=== PATIENT | female | born 1955 | race Caucasian/White ===

== ENCOUNTER 2023-11-18 08:16 | Inpatient (IN) | payer OTHER, BC ==
[2023-11-13 11:26] VITALS: BMI 40.3
[~2023-11-18 08:16] MED LIST: ACETAMINOPHEN 325 MG TABLET (FP) PO PRN; ONDANSETRON 4 MG/2 ML VIAL IVPUSH PRN; oxyCODONE HCL 5 MG TABLET PO PRN
[2023-11-18] MEDS ORDERED: TRANEXAMIC ACID 1000 MG/10 ML VIAL ONE ×2 (08:27→11:28)
[2023-11-18] MEDS ORDERED: ceFAZolin SODIUM 1 GM VIAL ONE (08:27)
[2023-11-18] MEDS ORDERED: TRANEXAMIC ACID 1000 MG/10 ML VIAL IVPUSH ONE (08:41)
[2023-11-18] MEDS ORDERED: CEFAZOLIN 2 GM in DEXTROSE 5%-WATER - 100 ML IVPB ONE (08:41)
[2023-11-18] MEDS ORDERED: VANCOMYCIN 1,000 MG VIAL (RESTRICTED TO ID ONLY) ONE (08:48)
[2023-11-18] MEDS ORDERED: BUPIVACAINE LIPOSOME/PF (EXPAREL) 266 MG/20 ML VIAL ONE (09:27)
[2023-11-18] MEDS ORDERED: BUPIVACAINE HCL/PF 0.5% (5MG/ML) 10 ML VIAL ONE (09:27)
[2023-11-18] MEDS ORDERED: MIDAZOLAM HCL 2 MG/2 ML SINGLE DOSE VIAL ONE ×2 (09:27→11:32)
[2023-11-18] MEDS ORDERED: ACETAMINOPHEN INJECTION 100 ML IVPB ONE (09:27)
[2023-11-18] MEDS ORDERED: BUPIVACAINE HCL/PF 0.5% (5 MG/ML) 30 ML VIAL IJ ONE (10:11)
[2023-11-18] MEDS ORDERED: BUPIVICAINE 0.25%/MORPH PF/KETOROLAC - 51ML DISP.SYRINGE IA ONE ×2 (10:35→11:55)
[2023-11-18] MEDS ORDERED: VANCOMYCIN 1,000 MG VIAL (RESTRICTED TO ID ONLY) IVPB ONE (11:44)
[2023-11-18] MEDS ORDERED: MAGNESIUM HYDROX 2400MG/30ML ORAL SUSPENSION 30 ML CUP PO PRN (12:38)
[2023-11-18] MEDS ORDERED: MAG HYDROX/AL HYDROX/SIMETH 30 ML UNIT-DOSE CUP PO PRN (12:38)
[2023-11-18] MEDS ORDERED: LACTATED RINGERS SOLUTION 1,000 ML IV SCH (12:45)
[2023-11-18] MEDS ORDERED: SODIUM CHLORIDE 1,000 ML IV SCH (12:45)
[2023-11-18] MEDS ORDERED: FENTANYL CITRATE/PF 50 MCG/ML VIAL ONE (13:11)
[2023-11-18] MEDS ORDERED: ONDANSETRON 4 MG/2 ML VIAL IVPUSH PRN (13:55)
[2023-11-18] MEDS ORDERED: ACETAMINOPHEN 500 MG TABLET (FP) PO SCH (16:30)
[2023-11-18] MEDS: CEFAZOLIN SODIUM 2 GM in DEXTROSE 5%-WATER 100 ML IVPB SCH (18:20)
[2023-11-18] MEDS: oxyCODONE HCL 5 MG TABLET PO PRN (18:21)
[2023-11-18] MEDS: ACETAMINOPHEN 500 MG TABLET (FP) PO SCH (18:21)
[2023-11-18] MEDS: LACTATED RINGERS SOLUTION 1,000 ML IV SCH (21:41)
[2023-11-18] MEDS: SENNOSIDES/DOCUSATE COMBO (SENNA PLUS) TABLET (UD) PO SCH (21:44)
[2023-11-18] MEDS: GABAPENTIN 300 MG CAPSULE PO SCH (21:44)
[2023-11-19] MEDS: CEFAZOLIN SODIUM 2 GM in DEXTROSE 5%-WATER 100 ML IVPB SCH (01:58)
[2023-11-19] MEDS: oxyCODONE HCL 5 MG TABLET PO PRN ×4 (02:01→13:00)
[2023-11-19] MEDS: ACETAMINOPHEN 500 MG TABLET (FP) PO SCH ×3 (02:03→16:43)
[2023-11-19] MEDS: LEVOTHYROXINE 112 MCG, LEVOTHYROXINE 25 MCG PO SCH (06:13)
[2023-11-19 08:19] LABS: HEMATOCRIT 32.3 % (32.4-45.2); HEMOGLOBIN 10.5 G/dL (10.7-15.3); MCHC 32.5 g/dl (32.0-36.0); MEAN CELL VOLUME 89.2 fl (80-96); MEAN PLT VOLUME 8.2 fl (7.5-11.1); RBC 3.62 10^6/uL (3.60-5.2); RDW 14.3 % (11.6-15.6); WHITE BLOOD COUNT 13.8 10^3/uL (4.0-10.8)
[2023-11-19] MEDS: ASPIRIN 81 MG CHEWABLE TABLETS PO SCH ×2 (09:03→21:18)
[2023-11-19] MEDS: GABAPENTIN 300 MG CAPSULE PO SCH ×2 (09:04→21:18)
[2023-11-19] MEDS: PANTOPRAZOLE 40 MG TABLET PO SCH (09:04)
[2023-11-19] MEDS: SENNOSIDES/DOCUSATE COMBO (SENNA PLUS) TABLET (UD) PO SCH ×2 (09:04→21:18)
[2023-11-19 09:32] LABS: CALCIUM 8.9 mg/dl (8.5-10.1); CREATININE 0.6 mg/dl (0.6-1.3); POTASSIUM 3.7 mmol/L (3.5-5.1)
[2023-11-19] MEDS ORDERED: VALSARTAN 160 MG TABLET PO SCH (10:00)
[2023-11-19] MEDS ORDERED: amLODIPine BESYLATE 10 MG TABLET (FP) PO SCH (10:00)
[2023-11-19] MEDS ORDERED: HYDROCHLOROTHIAZIDE 25 MG TABLET (FP) PO SCH (10:00)
[2023-11-19] MEDS: LACTATED RINGERS SOLUTION 1,000 ML IV SCH (21:16)
[2023-11-20] MEDS: ACETAMINOPHEN 500 MG TABLET (FP) PO SCH ×2 (02:24→09:30)
[2023-11-20] MEDS: oxyCODONE HCL 5 MG TABLET PO PRN ×4 (05:38→18:14)
[2023-11-20] MEDS: LEVOTHYROXINE 112 MCG, LEVOTHYROXINE 25 MCG PO SCH (06:33)
[2023-11-20 08:27] LABS: HEMATOCRIT 31.3 % (32.4-45.2); HEMOGLOBIN 10.2 G/dL (10.7-15.3); MCH 29.1 pg (25.7-33.7); MCHC 32.7 g/dl (32.0-36.0); MEAN PLT VOLUME 8.3 fl (7.5-11.1); PLATELET COUNT 229.3 10^3/uL (134-434); RBC 3.52 10^6/uL (3.60-5.2); RDW 14.3 % (11.6-15.6); WHITE BLOOD COUNT 12.6 10^3/uL (4.0-10.8)
[2023-11-20 08:50] LABS: CALCIUM 8.7 mg/dl (8.5-10.1); CREATININE 0.4 mg/dl (0.6-1.3); MAGNESIUM 1.7 mg/dL (1.8-2.4); PHOSPHOROUS 2.7 (2.5-4.9); POTASSIUM 3.9 mmol/L (3.5-5.1)
[2023-11-20] MEDS: SENNOSIDES/DOCUSATE COMBO (SENNA PLUS) TABLET (UD) PO SCH ×2 (09:29→21:21)
[2023-11-20] MEDS: GABAPENTIN 300 MG CAPSULE PO SCH ×2 (09:29→21:20)
[2023-11-20] MEDS: ASPIRIN 81 MG CHEWABLE TABLETS PO SCH ×2 (09:30→21:20)
[2023-11-20] MEDS: PANTOPRAZOLE 40 MG TABLET PO SCH (09:30)
[2023-11-20] MEDS: VALSARTAN 40 MG TABLET PO SCH (09:53)
[2023-11-20] MEDS: amLODIPine BESYLATE 10 MG TABLET (FP) PO SCH (09:53)
[2023-11-20] MEDS ORDERED: amLODIPine BESYLATE 5 MG TABLET (FP) PO SCH (10:00)
[2023-11-20] MEDS ORDERED: MAGNESIUM OXIDE 400 MG TABLET (FP) PO ONE (10:00)
[2023-11-20 21:49] VITALS: RESP 18
[2023-11-21] MEDS: oxyCODONE HCL 5 MG TABLET PO PRN ×2 (05:46→09:54)
[2023-11-21] MEDS: LEVOTHYROXINE 112 MCG, LEVOTHYROXINE 25 MCG PO SCH (06:04)
[2023-11-21 09:26] VITALS: TEMP 98.3
[2023-11-21] MEDS: SENNOSIDES/DOCUSATE COMBO (SENNA PLUS) TABLET (UD) PO SCH (09:54)
[2023-11-21] MEDS: ASPIRIN 81 MG CHEWABLE TABLETS PO SCH (09:54)
[2023-11-21] MEDS: PANTOPRAZOLE 40 MG TABLET PO SCH (09:55)
[2023-11-21] MEDS: VALSARTAN 40 MG TABLET PO SCH (09:55)
[2023-11-21] MEDS: GABAPENTIN 300 MG CAPSULE PO SCH (09:55)
[2023-11-21] MEDS: amLODIPine BESYLATE 10 MG TABLET (FP) PO SCH (09:56)
[2023-11-21 14:38] VITALS: BP 124/53; PULSE 82
== END 2023-11-21 13:24 | disposition home or self-care (01) | DRG 470 ==
LOC: FM/S 08:16
PROVIDERS: ADMIT Orthopaedic Surgery Sports Medicine; ATTEND Internal Medicine
PROC: 8E0Y0CZ Robotic Assisted Procedure of Lower Extremity, Open Approach (ICD-10-PCS; 2023-11-18)
PROC: 0SRC06Z Replacement of Right Knee Joint with Oxidized Zirconium on Polyethylene Synthetic Substitute, Open Approach (ICD-10-PCS; principal; 2023-11-18 10:53)
DX: M17.11 Unilateral primary osteoarthritis, right knee (principal); D72.829 Elevated white blood cell count, unspecified; G89.18 Other acute postprocedural pain
CPT/HCPCS: 36415; 73560-TC-RT-FY; 80048; 83735; 84100; 85027; 94760; 97010-GP; 97116-GP; 97162-GP; C1776